=== PATIENT | female | born 1980 | race Caucasian/White ===

== ENCOUNTER 2024-01-24 10:03 | Outpatient (CLI) | payer OTHER, SELFPAY ==
--- NOTE | ~2024-01-24 | XR_ITS ---
3 VIEWS LUMBAR SPINE Ordering provider: Yokasta Salcido, PADana History: . Low back pain . Comparison: None. FINDINGS: VERTEBRAL BODIES: No visible fracture or subluxation. DISK SPACES: Normal. SOFT TISSUES: Normal. IMPRESSION: No acute osseous abnormality lumbar spine. Reviewed, dictated and finalized at location A.
== END 2024-01-24 10:04 | disposition home or self-care (01) ==
LOC: MICIMG 10:04
PROVIDERS: PCP Physician Assistant; Visit Provider Physician Assistant
DX: M54.50 Low back pain, unspecified (principal)
CPT/HCPCS: 72100

== ENCOUNTER 2025-02-11 16:37 | Emergency (ER) | payer OTHER, SELFPAY ==
[2025-02-11 16:44] VITALS: BP 101/73; PULSE 83; RESP 16; TEMP 36.9; O2SAT 100
--- NOTE | 2025-02-11 16:50 | ED.UPPEXIN ---
HPI - Extremity Injury (Upper) General Chief Complaint: Extremity Injury, Upper Stated Complaint: Right Wrist Pain Time Seen by Provider: 02/11/25 16:50 Source: patient, RN notes reviewed and old records reviewed Mode of arrival: ambulatory Limitations: no limitations History of Present Illness HPI narrative: 44 year old female presents to [facility] with complaints of carrying in backpacks around 1530 today and felt pop in her left wrist is concerned of her vein popping. Patient does have bruising and tenderness to the right inner wrist is able to move wrist and hand without difficulty. Patient reports no tingling or numbness in hand has strong right radial pulse. Patient has not taken any OTC medications for discomfort or applied any ice to area. MD complaint: injury to: wrist (inner wrist) Onset (ago): hour(s) (1529 today) Other injuries: none Handedness: right Place: home Severity: mild Severity scale (1-10): 3 Treatments prior to arrival: other (none) Related Data Home Medications ?Medication ?Instructions ?Recorded ?Confirmed ?Last Taken ?Type No Home Medications 02/11/25 02/11/25 Unknown History Allergies Allergy/AdvReac Type Severity Reaction Status Date / Time Penicillins Allergy Intermediate HEARTBURN Verified 02/11/25 16:45 Review of Systems Review of Systems: CONSTITUTIONAL: Denies fever, chills, or sweats. EYES: Denies visual changes, redness, or discharge. ENT: Denies rhinorrhea, congestion, sore throat, or otalgia. CARDIOVASCULAR: Denies chest pain, palpitations, or edema. RESPIRATORY: Denies cough or dyspnea. GASTROINTESTINAL: Denies abdominal pain, nausea, vomiting, or diarrhea. GENITOURINARY: Denies dysuria or hematuria. SKIN: Denies rash or itching. MUSCULOSKELETAL: Denies back pain, reports discomfort and bruising to inner aspect of right wrist, or myalgia. NEUROLOGIC: Denies headache, numbness, or weakness. PSYCHIATRIC: Denies anxiety or depression. All systems reviewed & are unremarkable except as noted in HPI and below PMFSH Past Medical History Medical History (Updated 02/12/25 @ 10:39 by Savannah Mcdonald NP) Sinusitis Surgical History Surgical History (Updated 02/12/25 @ 10:38 by Savannah Mcdonald NP) History of repair of anterior cruciate ligament of right knee H/O section H/O elbow surgery right as child Social History Social History (Updated 02/12/25 @ 10:39 by Savannah Mcdonald NP) Smoking status: Current every day smoker Alcohol intake: current Alcohol use details: social Substance use type: does not use Living arrangements: with family Gender identity (if verbalized by the patient): Female Comments At time of signature, agree with nursing past medical, surgical, social and family history. There is no relevant family history pertinent to the presenting complaint Exam Narrative: GENERAL: Well-appearing, well-nourished, and in no acute distress. HEAD: Normocephalic, atraumatic. EYES: PERRLA and EOMI. ENT: Nares clear, no rhinorrhea or epistaxis. Mucous membranes moist. NECK: Supple.no lymphadenopathy CHEST: Clear to auscultation. No respiratory distress.SAO2 100% on room air HEART: Regular rate and rhythm. No murmur heard. Normal peripheral pulses. ABDOMEN: Soft, nontender, nondistended, normal active bowel sounds. EXTREMITIES: Normal range of motion. No edema. Bruising and discomfort to the inner aspect of her right wrist after carrying back packs around 1530 today has full mobility of her right wrist and hand, strong right radial pulse, sensation is intact concerned about vein popping in her wrist. SKIN: Warm, dry, no rash. NEURO: No focal deficits. Alert and oriented x3.anxious Course Course Emergency Course: Patient is aware of diagnosis, understands and agrees to treatment plan.? Anticipatory guidance given.? Patient agrees to follow-up as directed and is aware of reasons to seek care at the emergency department. Portions of this record may have been created with voice recognition software Level of Care: Express Care Visit Vital Signs Vital signs: Vital Signs Temperature 36.9 C 02/11/25 16:44 Pulse Rate 83 02/11/25 16:44 Respiratory Rate 16 02/11/25 16:44 Blood Pressure 101/73 02/11/25 16:44 Pulse Oximetry 100 02/11/25 16:44 Oxygen Delivery Room Air 02/11/25 16:44 Temperature 36.9 C 02/11/25 16:44 Pulse Rate 83 02/11/25 16:44 Respiratory Rate 16 02/11/25 16:44 Blood Pressure 101/73 02/11/25 16:44 Pulse Oximetry 100 02/11/25 16:44 Oxygen Delivery Room Air 02/11/25 16:44 Reviewed MDM - Extremity Injury (Upper) MDM Narrative Medical decision making narrative: bruising and some discomfort to the inner right wrist with full mobility of right wrist and hand, circulation and sensation is intact. Differential Diagnosis Differential diagnosis: Likely other (bruising and discomfort to inner right wrist, contusion of skin right wrist) Medical Records Attestation: I reviewed the patient's medical records. Critical Care Time Critical Care Time Critical Care Time: No Discharge Plan Discharge Clinical Impression: Contusion of right wrist, initial encounter Patient Disposition: Home Condition: Stable Instructions: Contusion in Adults (ED) Additional Instructions: Tylenol for lesser pain Ibuprofen regularly for the next 2-3 days for the inflammation 400 mg 3 times per day by mouth for the next 2 days with food monitor for any increase in swelling or increased pain to area Follow-up with PCP if further problems or concerns Ice to the area 20-30 minutes 4-6 times a day Elevate above heart If your symptoms persist, change or worsen significantly before you can contact your personal physician then please, without delay, go to the emergency department for further evaluation. Follow-up with PCP in 7-10 days or sooner if needed Patient Language: Welsh Prescriptions: No Action No Home Medications Follow-up/Referrals: Omari,TEO Templeton [Primary Care Provider, Unknown] Time of Disposition: 16:59 Quality [place] Coma Scale Eyes: Open Verbal: Oriented and Alert Motor: Follows Commands Stevo Coma Total Score: 15
--- OUTSIDE RECORDS SUMMARY | 2025-02-11 17:48 | XMS_ITS | Data Portability ---
Author Organization [facility] Address [address] [place] [address] Care Team Providers Care Certified [place] Reporter Name Role Phone TAMIKOJHONNY COLVIN Primary Care Provider Unavailab le Assessment No assessment recorded. Plan of Treatment Reminders Order Date Submit Date Provider Last Modified By Organization Details Last Modified Time Details Appointments None recorded. Lab TSH + free T4, serum 2023 [facility] [employer] [facility], [address], [place], [address], 4 15:26:48 T3, free, serum or plasma 2023 024 [facility] [employer] [facility], [address], [place], [address], 4 15:27:38 lipid panel, serum 2023 024 [facility] [employer] [facility] [facility], [address], [place], [address], 4 15:26:57 CBC w/ auto diff 2023 024 CHELSI [facility] [employer] [facility], [address], [place], [address], 4 15:28:04 CMP, serum or plasma 2023 024 [facility], [address], [place], [address], 4 15:27:08 vitamin B12 + folate, serum or blood 2023 024 [facility] [employer] [facility], [address], [place], [address], 15:27:48 HbA1c (hemoglobi n A1c), blood 2023 024 [facility] [employer] [employer] [facility], [address], [place], [address], 4 15:27:29 Referral None recorded. Procedures None recorded. Surgeries None recorded. Imaging XR, lumbosacra l spine, 2 or 3 view 2023 [facility], [address], [place], [address], 14:13:12 Medication Orders None recorded. Patient TargetsNo targets recorded. Patient InstructionsNo instructions recorded. Reason for Referral None Reported. Results Created Date Observation Date Name Description Value Unit Range Abnormal Flag Note LastModifiedBy Organization Detail LastModifiedTime 01/24/2001/24/2024 XR, lumbo sacra l spine , 2 or 3 view No observ ation record ed. [email or web address] [facility] [address], [place], [address], 01/29/2024 13:03:57 Result Notes None recorded. Problems Name Problem SNOMED Code Status Onset Date Resolution Date Notes Provider Name and Address Organization Details Recorded Time Body mass index 20-24 - normal 404833391 Active 2023 GEORGIANA Gandhi Attn: Garrett cool,[address] [facility], [place], [address], [facility] 12:04:28 Subjective pulsatile tinnitus of left ear 1047240679175 103 Active 2023 GEORGIANA Gandhi Attn: Garrett cool,[address] [facility], [place], [address], [facility] 4 12:05:43 Problem Notes None recorded. Procedures Surgical History Date Name Laterality Status Provider Name and Address Organization Details Recorded Time Knee Surgery completed Ileana Sow MA [facility] 11/13/2023 15:51:58 section completed Ileana Sow MA [facility] 11/13/2023 15:52:03 Imaging Results None recorded. Procedure Notes None recorded. Medical Equipment None Reported. Allergies Allergen ID Allergen Name Allergen Category Reaction Reaction Severity Criticality Documentation Date Start Date Code Code System Note Provider Name and Address Organization Details Recorded Time 770025 amoxicill in medicatio n other Not available Not available 07/30/2023 723 RxNorm burni ng, doesn 't work LINDSAY Guzman, [facility] 16:03:56 Medications Not known to be on any medication Vitals Date Recorded Systolic And Diastolic Systolic And Diastolic Provider Name and Address Organization Details Last Updated DateTime 11/13/2023 110/70 mm[Hg] 110/80 mm[Hg] GEORGIANA Gandhi Attn: Accounting,[address] [facility], [place], [address], [facility] 11/13/2023 16:40:36 Date Recorded Body height Body mass index (BMI) Body weight Respiratory rate Oxygen saturation Oxygen saturation in Arterial blood by Pulse oximetry Heart rate Systolic And Diastolic Provider Name and Address Organization Details Last Updated DateTime 160.02 cm 21.4 kg/m2 61017.6 8 g 20 /min 98 % 98 % 73 /min 132/68 mm[Hg] Ileana Sow MA [facility] 16:08:16 Social History Question Answer Notes LastModified by Organizat ion Details LastModified Time Tobacco Smoking Status Current Every Day Smoker LINDSAY Guzman, [facility] 11/13/2023 15:52:59 Do You Have An Advance Directive? No Information n ot available 11/13/2023 Are You Blind Or Do You Have Difficulty Seeing? No Information n ot available 11/13/2023 What Is Your Level Of Caffeine Consumption? Moderate Information not available 11/13/2023 In The 14 Days Before Symptom Onset, Have You Had Close Contact With A Laboratory-confirm ed COVID-19 While That Case Was Ill? No Information n ot available 09/27/2023 In The 14 Days Before Symptom Onset, Have You Had Close Contact With A Person Who Is Under Investigation For COVID-19 While That Person Was Ill? No Information not available 09/27/2023 Have You Been To An Area Known To Be High Risk For COVID-19? No Information not available 09/27/2023 Are You Deaf Or Do You Have Serious Difficulty Hearing? No Information not available 11/13/2023 Are There Any Guns Present In Your Home? No Information not available 11/13/2023 What Was The Date Of Your Most Recent Tobacco Screening? 09/27/2023 Information not available 09/27/2023 Do You Use Your Seat Belt Or Car Seat Routinely? Yes Information not available 09/27/2023 Do You Have Smoke And Carbon Monoxide Detectors In Your Home? Yes Information not available 09/27/2023 How Much Tobacco Do You Smoke? 0.5 PPD 6 Cigs Information not available 11/13/2023 Do You Use Sunscreen Routinely? No Information not available 11/13/2023 Has Tobacco Cessation Counseling Been Provided? Yes Information not available 09/27/2023 On What Date Was Tobacco Cessation Counseling Provided? 09/27/2023 Information not available 09/27/2023 Sex: Female Functional Status Question Answer Note LastModified by Organizat ion Details LastModified Time Do you use any illicit or recreational drugs? No Information not available 11/13/2023 Do you or have you ever used any other forms of tobacco or nicotine? No Information not available 11/13/2023 What is your level of alcohol consumption? None Information not available 11/13/2023 Are you able to care for yourself independently? Yes Information not available 09/27/2023 Mental Status None recorded. Family History Relationship Description Onset Age of this Age Resolved Age Notes LastModified by Organization Details LastModified Time Father Hypertensive disorder [email or web address] Not available 2023 15:52:24 Mother Malignant neoplasm of skin tcarterma Not available 2023 16:05:02 Medical History Condition Response Coronary Artery Disease N Other N High Blood Pressure N Atrial Fibrillation N Kidney or Bladder Problems N Thyroid Problems N GI Problems N Depression N COPD N Blood Clots N Have you had a mammogram in the last yea r? N Skin Problems N Anemia N Heart Attack (OR) N Anxiety Disorder N Diabetes N Muscle, Joint, or Bone Problems N Seizures/Epilepsy N Have you had a colonoscopy in the last 1 0 years? N Acid Reflux (GERD) N Cancer N Stroke N Asthma N Allergies N Have you had a PSA blood test in the las t year? N High Cholesterol N Hepatitis N Liver Disease N Headaches N Heart Failure N Osteoporosis N Gynecological History Statement/Question Response Flow Heavy Date of LMP 10/20/2023 Menses Monthly Y Duration of Flow (days) 4 Current Control Method None LMP Approximate Obstetrics History GPAL:G 2 P 2 0 0 0 Type Value Full Term 2 Induced 0 Spontaneous 0 Premature 0 Total 2 Past Encounters Encounter ID Performer Location Encounter Start Date Encounter Closed Date Diagnosis/Indication Diagnosis SNOMED-CT Code Diagnosis ICD10 Code Diagnosis IMO Codes Diagnosis Note [id number] Frank Mendez MD [facility] [address] [place] [address] 11/13/2023 15:39:43 11/13/2023 16:54:52 Body mass index 20-24 - normal 858691965 Z68.21 BMI in normal range Adult [facility] examination 301249908 Z00.00 Annual wellness exam completed with fasting labs ordered. Cholesterol screening 27 1631736 Z13.220 Fasting cholestero l due Diabetes m ellitus screening 496269689 Z13.1 Annual A1c screening due Thyroid di sorder screening 354729629 Z13.29 Routine thyroid function panel ordered Endocrine/ metabolic screening 783362212 Z13.228 Screening vitamin B12 and folate ordered Low back pain 088333059 M54.50 Check baseline x-ray of lumbar sacral spine with ongoing lumbar back pain. She can try over-the-c ounter anti-infla mmatory and topical muscle rub. Subjective pulsatile tinnitus of left ear [id number] 024688 H93.A2 Patient would like to hold off until she finds out informatio n about her insurance coverage for an MRI of the brain and internal auditory canals. Discussed with patient that this testing is necessary with her pulsatile tinnitus in the left ear. She has particular insurance and is not sure where her testing needs to be completed. She will reach back out to this provider and notify her of where to fax orders. Health Concerns Section Related Observation LastModified by Organization Detai ls LastModified Time None Recorded Concern Status LastModified by Organization Details LastModified Time None Recorded Advance Directives Directive N: Payers Insurance Date Sequence Insurance Name Policy Number Policy Wyatt Covered Member ID Wyatt Member ID Guarantor Name 11/13/2023 1 [employer] [id number] Keke Schaefer [id number] Keke Schaefer 11/13/2023 2 [employer] [id number] Keke Schaefer [id number] Keke Schaefer 11/13/2023 1 [employer] - [employer] [address] [id number] Keke Schaefer [id number] 2 Keke Schaefer Notes Date Note Type Note Provider Name and Address Organization Details Recorded Time 11/13/2023 text/html Patient presents for annual exam and to re-establish with PCP. She is due for lab work. She does report some ongoing low back pain that is present over several months to longer than that. There was no injury. 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 Patient also reports she has a pulsatile tinnitus in her left ear primarily that when she applies pressure to the neck it does improve. She has seen a specialist about this in the past with no abnormalities found but there was limited evaluation it sounds like. GEORGIANA Gandhi Attn: Accounting,[address] [facility], [place], [address], [facility] 11/18/2023 12:06:05 OBGyn Episode No OBEpisode recorded.
== END 2025-02-11 17:00 | disposition home or self-care (01) ==
PROVIDERS: Emergency Provider Registered Nurse; PCP Physician Assistant
DX: S60.211A Contusion of right wrist, initial encounter (principal); X50.0XXA Overexertion from strenuous movement or load, initial encounter; F17.200 Nicotine dependence, unspecified, uncomplicated
CPT/HCPCS: 99202; G0463